=== PATIENT | male | born 1980 ===

== ENCOUNTER 2024-12-16 16:35 | Inpatient (IN) | payer MEDICARE, MEDICAID, SELFPAY ==
--- NOTE | 2024-12-16 17:54 | PC.ADMIT ---
Blue is a 44-year-old male admitted from [facility] to 12/16/24 on a CV for treatment of bipolar d/o and SI with plan to jump into traffic. Tox screen positive for THC. Medical hx of HTN and diabetes. Per crisis eval, pt presented to ED because ?I was feeing suicidal and I just snapped. I?m from [place] but I want to move here. My care team in [place] sucks, they?re all pussies.? Pt endorsed auditory hallucinations of ?random voices? and ?sometimes? experiences HI, not towards anyone specifically. While pt was in [facility] ED, RN reported that pt became increasingly paranoid and agitated but willingly accepted IM Zyprexa 5mg at 0930 and IM Versed 5mg at 1000 with good effect. Upon arrival to , pt was easily agitated but compliant with skin check which was unremarkable. Pt reported a 10lb weight loss in ?the past few weeks.? Pt declined to participate in remainder of admission assessment. Pt received PRN Zyprexa 5mg PO at 1709. Pt presents as anxious and paranoid, asking ?is it safe here? I need to be here for a long time.? Pt also asked ?can you tell me what Ambien is? I want to be on it. I have all kinds of sleep disorders.? Message was relayed to provider but RN told pt that Ambien is not typically prescribed unless patients have been prescribed it previously. Pt was frequently asking for his meal tray right after his order was called down but he declined snacks when they were offered. Pt approached RN station shortly after receiving PO Zyprexa saying ?I need something stronger. I need a happy pill. I haven?t been happy in 20 years. I need Ambien. I feel agitated and anxious and like I want to . I need to work but I don?t have a job.? Eye contact was avoidant and pt frequently looked away or walked away from RN during conversation. Pt frequently approached RN station asking for Ambien and stated ?I need to get out of here. I just want to fucking , I?ll step in front of a truck or stick a pen in my throat. I want to kill myself or someone else.? Pt responded well to redirection. Provider ordered PRN Ambien for pt to take prior to bedtime. Pt placed on 15 minute safety checks.
--- NOTE | 2024-12-16 17:55 | PC.NURSE ---
pt declined flu vaccine at this time
[2024-12-16] MEDS: OLANZapine ODT 10 MG TAB.RAPDIS TRANSLINGU ×2 (17:59→20:21)
--- NOTE | 2024-12-16 18:03 | PC.NURSE ---
Per provider, ok to give pt PRN Ambien 5mg at 1759.
[2024-12-16 18:59] VITALS: BMI 25.0
[2024-12-16 20:21] LABS: Creatinine Clr Calc Pharmacy 129.5; Estimated Glomerular Filt Rate > 60
[2024-12-16 20:30] VITALS: BP 119/75; PULSE 83; RESP 16; TEMP 36.4; O2SAT 97
[2024-12-17 08:00] VITALS: BP 124/83; PULSE 79; RESP 18; TEMP 36.6; O2SAT 95
--- NOTE | 2024-12-17 08:37 | HO.PM.IMCN ---
History of Present Illness Data of Consult Service Date: 12/17/24 Primary Care Provider: Unknown Physician HPI 44 year old man with a history of diabetes mellitus, hyperlipidemia admitted by psychiatric team. Vital signs are stable, creatinine within normal limits. Patient has no acute medical complaints at this time Review of Systems Review of Systems: Denies any recent fever chills or decrease in appetite respiratory denies any shortness of breath or cough cardiovascular denied chest pain gastrointestinal denies any dysphagia abdominal pain nausea vomiting or diarrhea genitourinary denies any dysuria frequency or hematuria musculoskeletal denies any joint pain or swelling neuropsych denies any weakness or seizures all other systems reviewed are negative [facility] Medical History (Updated 12/17/24 @ 10:38 by Amanda Ballesteros NP) Depression Hyperlipidemia Diabetes mellitus type 2 in nonobese Social History Household Members: Other Household Members Other:: pt declined to respond Housing: Other Housing Other:: pt declined to respond Do you presently have visiting nurse or other home services: No Patient Tobacco Use Status: Current everyday Tobacco user Tobacco use type: Cigarette Cigarette Packs Per Day: 1 Cigarettes Per Day: 20.0 Smoked in Last 30 Days: Yes Frequency of e-Cigarette/Vaping Use: daily Patient Interested in Nicotine Replacement: Yes Patient Given Instructions on How to Stop Smoking: Yes Date Education Initiated: 12/16/24 Second Hand Smoke Exposure: No Currently Displaying Signs/Symptoms of Drug Intoxication Withdrawal: No Advance Directives: No Advance Directives Information Provided: No Do you have thoughts of harming others: None Do you have a plan to hurt others: No Plan Recently lost weight without trying: Yes How much weight loss: 2-13 pounds Eating poorly because of decreased appetite: Yes Nutrition screen score: 4 Nutrition Risks: No Nutritional Risk Poor oral hygiene: Yes (poor dentition) Meds Allergies Allergy/AdvReac Type Severity Reaction Status Date / Time No Known Allergies Allergy Verified 12/16/24 16:40 Active Medications: Current Medications Acetaminophen (Acetaminophen 325 Mg Tablet) 650 mg PO Q6H PRN PRN Reason: Headache/Pain, Scale 1-10 Al Hydroxide/Mg Hydroxide (Magnesium Hydrox/Alum Hydrox 30 Ml Oral.Susp) 30 ml PO Q6H PRN PRN Reason: Heartburn/Nausea Hydroxyzine HCl (Hydroxyzine Hcl 25 Mg Tablet) 25 mg PO Q6H PRN PRN Reason: mild anxiety Magnesium Hydroxide (Milk Of Magnesia 30 Ml Oral.Susp) 30 ml PO DAILY PRN PRN Reason: Constipation Metformin HCl (Metformin Hcl 500 Mg Tablet) 750 mg PO BEDTIME EFRAÍN Last Admin: 12/16/24 20:20 Dose: 750 mg Nicotine (Nicotine 21 Mg Patch.Td24) 21 mg TRANSDERMA DAILY EFRAÍN Nicotine Polacrilex (Nicotine Polacrilex 2 Mg Gum) 4 mg BUCCAL Q1H PRN PRN Reason: Nicotine Cravings Last Admin: 12/16/24 21:49 Dose: 4 mg Olanzapine (Olanzapine Odt 10 Mg Tab.Rapdis) 10 mg TRANSLINGU TID PRN PRN Reason: agitation Last Admin: 12/16/24 17:59 Dose: 10 mg Olanzapine (Olanzapine Odt 10 Mg Tab.Rapdis) 10 mg TRANSLINGU BEDTIME EFRAÍN Last Admin: 12/16/24 20:21 Dose: 10 mg Trazodone HCl (Trazodone Hcl 50 Mg Tablet) 50 mg PO BEDTIME MRX1 PRN PRN Reason: Insomnia Last Admin: 12/16/24 21:02 Dose: 50 mg Zolpidem Tartrate (Zolpidem Tartrate 5 Mg Tablet) 5 mg PO BEDTIME EFRAÍN Last Admin: 12/16/24 20:21 Dose: 5 mg Zolpidem Tartrate (Zolpidem Tartrate 5 Mg Tablet) 5 mg PO BEDTIME PRN PRN Reason: Insomnia Last Admin: 12/16/24 17:59 Dose: 5 mg Home Medications ?Medication ?Instructions ?Recorded ?Confirmed ?Last Taken ?Type atorvastatin 20 mg tablet 20 mg PO DAILY 12/16/24 12/16/24 Unknown History metformin 750 mg tablet,extended 750 mg PO DAILY 12/16/24 12/16/24 Unknown History release 24 hr olanzapine 10 mg disintegrating 10 mg PO DAILY 12/16/24 12/16/24 Unknown History tablet olanzapine 10 mg disintegrating 25 mg PO BEDTIME 12/16/24 12/16/24 Unknown History tablet tiotropium bromide 2.5 2 inh inhalation DAILY 12/16/24 12/16/24 Unknown History mcg/actuation mist for inhalation trazodone 100 mg tablet 100 mg PO BEDTIME 12/16/24 12/16/24 Unknown History Physical Exam Vital Signs and Narrative: Vital Signs: Last Vital Signs Temp 97.6 F 12/16/24 20:30 Pulse 83 12/16/24 20:30 Resp 16 12/16/24 20:30 BP 119/75 12/16/24 20:30 Pulse Ox 97 12/16/24 20:30 O2 Del Method Room Air 12/16/24 20:30 BMI result Body Mass Index 25.0 Appearing in no acute distress head is normocephalic atraumatic eyes pupils are PERRLA sclera is anicteric mouth throat mucous membranes are intact and moist neck is supple no lymphadenopathy, no JVD noted lung sounds are clear to auscultation heart regular rate rhythm, clear S1, S2 positive bowel sounds, abdomen is soft, nontender neuro patient is alert x3, no focal deficits Cranial nerves 2-12 are grossly intact with focal deficits Results Labs 12/16/24 19:59 Labs: Laboratory Results - last 24 hr 12/16/24 19:59 Estim Creat Clear Calc 129.5 Estimated GFR > 60 Assessment and Plan (1) Major depression, recurrent: Status: Acute Plan 46 year old man admitted by psychiatric team for depression Mental health management as per psychiatric team Erectile dysfunction Patient requested medication upon discharge, this can be discussed with the psychiatric provider and the patient or the patient, referred to an outpatient provider Tobacco use Discussed the importance of smoking cessation NRT
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
[2024-12-17] MEDS: Nicotine 21 MG PATCH.TD24 TRANSDERMA (08:57)
[2024-12-17] MEDS: OLANZapine ODT 10 MG TAB.RAPDIS TRANSLINGU ×2 (09:49→20:04)
[2024-12-17 19:22] VITALS: BP 145/93; PULSE 98; RESP 16; TEMP 36.6; O2SAT 97
[2024-12-18 08:00] VITALS: BP 117/71; PULSE 84; RESP 18; TEMP 36.3; O2SAT 93
--- NOTE | 2024-12-18 09:57 | HO.PSYCHPN ---
Subjective Subjective Date of Service: 12/18/24 Reason For Visit: SI Subjective Notes: Conditional Voluntary Interim History: Patient was seen and discussed in rounds today. Records and plans were reviewed. He continued to be quite anxious, complaining of intrusive thoughts, having some wishes and at times mentioning about having wanted to jump in front of a truck etc.. Initially the Zyprexa p.r.n. proved to be ineffective so I changed him to chlorpromazine 50 mg q.4 p.r.n. and that also seemed to be not enough so last night we increased it to 100 mg with which he did finally sleep. He also has been making some sexualized remarks which I talked to him about. He denies any side effects on the higher dose of chlorpromazine. He does contract for safety on the unit. Review of Systems Review of Systems Yes all other systems are reviewed and are negative Mental Status Exam Mental Status Exam Narrative: In today's visit he is alert, oriented and pleasant. He appears to be calmer. No acute signs of psychosis but continues to exhibit paranoid feelings and denies any AVH. Continues to endorse some suicidal ideations and wishes. Contracts for safety on the unit. Cognitively he is intact on observation. No HI. Judgment is marginal. Diagnostics Vital Signs (24Hr): Vital Signs - 24 hr 12/17/24 19:22 12/18/24 08:00 Temperature 97.8 F 97.3 F Pulse Rate 98 84 Respiratory Rate 16 18 Blood Pressure 145/93 H 117/71 Pulse Oximetry 97 93 Oxygen Delivery Method Room Air Room Air BMI result Body Mass Index 25.0 Labs 12/16/24 19:59 Labs: Laboratory Results - last 48 hr 12/16/24 19:59 Creatinine 0.72 Estim Creat Clear Calc 129.5 Estimated GFR > 60 Medications Medications Current Medications Acetaminophen (Acetaminophen 325 Mg Tablet) 650 mg PO Q6H PRN PRN Reason: Headache/Pain, Scale 1-10 Last Admin: 12/17/24 20:47 Dose: 650 mg Al Hydroxide/Mg Hydroxide (Magnesium Hydrox/Alum Hydrox 30 Ml Oral.Susp) 30 ml PO Q6H PRN PRN Reason: Heartburn/Nausea Atorvastatin Calcium (Atorvastatin Calcium 20 Mg Tablet) 20 mg PO DAILY [facility] Last Admin: 12/17/24 09:23 Dose: 20 mg Chlorpromazine HCl (Chlorpromazine Hcl 100 Mg Tablet) 100 mg PO Q4H PRN PRN Reason: anxiet, agitation Fluoxetine HCl (Fluoxetine Hcl 10 Mg Capsule) 10 mg PO DAILY [facility] Last Admin: 12/17/24 09:24 Dose: 10 mg Hydroxyzine HCl (Hydroxyzine Hcl 25 Mg Tablet) 25 mg PO Q6H PRN PRN Reason: mild anxiety Last Admin: 12/17/24 16:20 Dose: 25 mg Magnesium Hydroxide (Milk Of Magnesia 30 Ml Oral.Susp) 30 ml PO DAILY PRN PRN Reason: Constipation Metformin HCl (Metformin Hcl 500 Mg Tablet) 750 mg PO BEDTIME EFRAÍN Last Admin: 12/17/24 20:04 Dose: 750 mg Nicotine (Nicotine 21 Mg Patch.Td24) 21 mg TRANSDERMA DAILY EFRAÍN Last Admin: 12/17/24 08:57 Dose: 21 mg Nicotine Polacrilex (Nicotine Polacrilex 2 Mg Gum) 4 mg BUCCAL Q1H PRN PRN Reason: Nicotine Cravings Last Admin: 12/17/24 22:11 Dose: 4 mg Olanzapine (Olanzapine Odt 10 Mg Tab.Rapdis) 10 mg TRANSLINGU BEDTIME EFRAÍN Last Admin: 12/17/24 20:04 Dose: 10 mg Trazodone HCl (Trazodone Hcl 50 Mg Tablet) 50 mg PO BEDTIME MRX1 PRN PRN Reason: Insomnia Last Admin: 12/17/24 21:35 Dose: 50 mg Zolpidem Tartrate (Zolpidem Tartrate 5 Mg Tablet) 5 mg PO BEDTIME EFRAÍN Last Admin: 12/17/24 20:04 Dose: 5 mg Allergies Allergies Allergy/AdvReac Type Severity Reaction Status Date / Time No Known Allergies Allergy Verified 12/16/24 16:40 Assessment & Plan Assessment & Plan (1) Major depression, recurrent: Status: Acute Code(s): F33.9 - Major depressive disorder, recurrent, unspecified Plan 46 year old man admitted by psychiatric team for depression Mental health management as per psychiatric team Erectile dysfunction Patient requested medication upon discharge, this can be discussed with the psychiatric provider and the patient or the patient, referred to an outpatient provider Tobacco use Discussed the importance of smoking cessation NRT 12/18: Continue current regimen and plans Patient educated on: medication risk/benefits Reason for continued inpatient stay Substantial Risk for: med/psych decompensation Time Spent With Patient Time: Total time managing care of this patient today ____ minutes.
[2024-12-18] MEDS: Nicotine 21 MG PATCH.TD24 TRANSDERMA (10:26)
[2024-12-18] MEDS: Mag&Al/Sim/Diphenhyd/Lidocaine 10 ML ORAL.SUSP PO ×2 (15:17→19:07)
[2024-12-18 20:00] VITALS: BP 115/60; PULSE 97; RESP 18; TEMP 36.2; O2SAT 95
[2024-12-18] MEDS: OLANZapine ODT 10 MG TAB.RAPDIS TRANSLINGU (20:05)
[2024-12-19 07:45] VITALS: BP 118/81; PULSE 69; RESP 20; TEMP 36.2; O2SAT 96
--- NOTE | 2024-12-19 08:42 | HO.PSYCHPN ---
Subjective Subjective Date of Service: 12/19/24 Reason For Visit: SI Subjective Notes: Conditional Voluntary and 3 Day Interim History: Patient was seen and discussed in rounds today. Records and plans were reviewed. He actually has been doing better with the increased dose of chlorpromazine. He did have some mood instability yesterday, wanting to leave but was easily redirected. He denies any side effects. Eating and sleeping well. No SI. He did put in a 3 day notice. He does want to return to [place] at this time. Review of Systems Review of Systems Yes all other systems are reviewed and are negative Mental Status Exam Mental Status Exam Narrative: In today's visit he is alert, oriented and pleasant. He appears to be calmer. No acute signs of psychosis but continues to exhibit paranoid feelings and denies any AVH. Continues to endorse some suicidal ideations and wishes. Contracts for safety on the unit. Cognitively he is intact on observation. No HI. Judgment is marginal. Diagnostics Vital Signs (24Hr): Vital Signs - 24 hr 12/18/24 20:00 12/19/24 07:45 Temperature 97.1 F 97.2 F Pulse Rate 97 69 Respiratory Rate 18 20 Blood Pressure 115/60 118/81 Pulse Oximetry 95 96 Oxygen Delivery Method Room Air Room Air BMI result Body Mass Index 25.0 Labs 12/16/24 19:59 Medications Medications Current Medications Acetaminophen (Acetaminophen 325 Mg Tablet) 650 mg PO Q6H PRN PRN Reason: Headache/Pain, Scale 1-10 Last Admin: 12/18/24 14:34 Dose: 650 mg Al Hydroxide/Mg Hydroxide (Magnesium Hydrox/Alum Hydrox 30 Ml Oral.Susp) 30 ml PO Q6H PRN PRN Reason: Heartburn/Nausea Atorvastatin Calcium (Atorvastatin Calcium 20 Mg Tablet) 20 mg PO DAILY EFRAÍN Last Admin: 12/18/24 10:25 Dose: 20 mg Chlorpromazine HCl (Chlorpromazine Hcl 100 Mg Tablet) 100 mg PO Q4H PRN PRN Reason: anxiet, [id number] agitation Last Admin: 12/18/24 16:13 Dose: 100 mg Diazepam (Diazepam 5 Mg Tablet) 10 mg PO Q4H PRN PRN Reason: agitation;given w/ haldol Diphenhydramine HCl (Diphenhydramine Hcl 25 Mg Capsule) 50 mg PO Q4H PRN PRN Reason: agitation Fluoxetine HCl (Fluoxetine Hcl 10 Mg Capsule) 10 mg PO DAILY EFRAÍN On Hold: 12/18/24 17:42 Last Admin: 12/18/24 10:25 Dose: 10 mg Haloperidol (Haloperidol 5 Mg Tablet) 5 mg PO Q4H PRN PRN Reason: agitation Hydroxyzine HCl (Hydroxyzine Hcl 25 Mg Tablet) 25 mg PO Q6H PRN PRN Reason: mild anxiety Last Admin: 12/18/24 16:13 Dose: 25 mg Lidocaine/Diphenhydr/Alum/Mg/Simeth (Mag&Al/Sim/Diphenhyd/Lidocaine 10 Ml Oral.Susp) 10 ml PO Q4H PRN; Protocol PRN Reason: mouth pain Last Admin: 12/18/24 19:07 Dose: 10 ml Magnesium Hydroxide (Milk Of Magnesia 30 Ml Oral.Susp) 30 ml PO DAILY PRN PRN Reason: Constipation Metformin HCl (Metformin Hcl 500 Mg Tablet) 750 mg PO BEDTIME EFRAÍN Last Admin: 12/18/24 20:05 Dose: 750 mg Nicotine (Nicotine 21 Mg Patch.Td24) 21 mg TRANSDERMA DAILY EFRAÍN Last Admin: 12/18/24 10:26 Dose: 21 mg Nicotine Polacrilex (Nicotine Polacrilex 2 Mg Gum) 4 mg BUCCAL Q1H PRN PRN Reason: Nicotine Cravings Last Admin: 12/19/24 08:33 Dose: 4 mg Olanzapine (Olanzapine Odt 10 Mg Tab.Rapdis) 10 mg TRANSLINGU BEDTIME EFRAÍN Last Admin: 12/18/24 20:05 Dose: 10 mg Trazodone HCl (Trazodone Hcl 50 Mg Tablet) 50 mg PO BEDTIME MRX1 PRN PRN Reason: Insomnia Last Admin: 12/18/24 20:41 Dose: 50 mg Zolpidem Tartrate (Zolpidem Tartrate 5 Mg Tablet) 5 mg PO BEDTIME EFRAÍN Last Admin: 12/18/24 20:05 Dose: 5 mg Allergies Allergies Allergy/AdvReac Type Severity Reaction Status Date / Time No Known Allergies Allergy Verified 12/16/24 16:40 Assessment & Plan Assessment & Plan (1) Major depression, recurrent: Status: Acute Code(s): F33.9 - Major depressive disorder, recurrent, unspecified Plan 46 year old man admitted by psychiatric team for depression Mental health management as per psychiatric team Erectile dysfunction Patient requested medication upon discharge, this can be discussed with the psychiatric provider and the patient or the patient, referred to an outpatient provider Tobacco use Discussed the importance of smoking cessation NRT 12/18: Continue current regimen and plans 12/19: Continue current regimen and plans. Reason for continued inpatient stay Substantial Risk for: med/psych decompensation Time Spent With Patient Time: Total time managing care of this patient today ____ minutes.
[2024-12-19] MEDS: Nicotine 21 MG PATCH.TD24 TRANSDERMA (09:05)
[2024-12-19] MEDS: Mag&Al/Sim/Diphenhyd/Lidocaine 10 ML ORAL.SUSP PO (09:10)
[2024-12-19 20:00] VITALS: BP 146/71; PULSE 98; RESP 16; TEMP 36.3; O2SAT 95
[2024-12-19] MEDS: OLANZapine ODT 10 MG TAB.RAPDIS TRANSLINGU (20:57)
[2024-12-20 07:58] VITALS: BP 110/79; PULSE 90; RESP 16; TEMP 36.3; O2SAT 96
[2024-12-20] MEDS: Nicotine 21 MG PATCH.TD24 TRANSDERMA (08:00)
--- NOTE | 2024-12-20 14:08 | HO.PSYCHPN ---
Subjective Subjective Date of Service: 12/20/24 Reason For Visit: SI Subjective Notes: 3 Day Interim History: Active on unit. visited with friend today. Patient reports feeling better than when I first got here ; pt stated, I'm not feeling suicidal. I get agitated and anxious pretty quick. I gotta work on that . 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 denies SI/HI/VH/AH. 3 day notice up on 12/22/24. Medication Compliance: Yes Side effects from medications: No Attending Groups: No Mental Status Exam Mental Status Exam Narrative: Pt is alert and oriented; behavior is cooperative and calm; dressed in casual attire; mood is described as good ; eye contact appropriate; Speech is normal rate, volume and not pressured; thought process is organized; Thought content is on tx/discharge; denies SI/HI/VH/AH. Diagnostics Vital Signs (24Hr): Vital Signs - 24 hr 12/19/24 20:00 12/20/24 07:58 Temperature 97.3 F 97.4 F Pulse Rate 98 90 Respiratory Rate 16 16 Blood Pressure 146/71 H 110/79 Pulse Oximetry 95 96 Oxygen Delivery Method Room Air Room Air BMI result Body Mass Index 25.0 Labs 12/16/24 19:59 Medications Medications Current Medications Acetaminophen (Acetaminophen 325 Mg Tablet) 650 mg PO Q6H PRN PRN Reason: Headache/Pain, Scale 1-10 Last Admin: 12/19/24 15:22 Dose: 650 mg Al Hydroxide/Mg Hydroxide (Magnesium Hydrox/Alum Hydrox 30 Ml Oral.Susp) 30 ml PO Q6H PRN PRN Reason: Heartburn/Nausea Atorvastatin Calcium (Atorvastatin Calcium 20 Mg Tablet) 20 mg PO DAILY EFRAÍN Last Admin: 12/20/24 08:00 Dose: 20 mg Chlorpromazine HCl (Chlorpromazine Hcl 100 Mg Tablet) 100 mg PO Q4H PRN PRN Reason: anxiet, [id number] agitation Last Admin: 12/20/24 11:40 Dose: 100 mg Diazepam (Diazepam 5 Mg Tablet) 10 mg PO Q4H PRN PRN Reason: agitation;given w/ haldol Last Admin: 12/20/24 12:40 Dose: 10 mg Diphenhydramine HCl (Diphenhydramine Hcl 25 Mg Capsule) 50 mg PO Q4H PRN PRN Reason: agitation Last Admin: 12/20/24 12:40 Dose: 50 mg Fluoxetine HCl (Fluoxetine Hcl 10 Mg Capsule) 10 mg PO DAILY EFRAÍN On Hold: 12/18/24 17:42 Last Admin: 12/18/24 10:25 Dose: 10 mg Haloperidol (Haloperidol 5 Mg Tablet) 5 mg PO Q4H PRN PRN Reason: agitation Last Admin: 12/20/24 12:40 Dose: 5 mg Hydroxyzine HCl (Hydroxyzine Hcl 25 Mg Tablet) 25 mg PO Q6H PRN PRN Reason: mild anxiety Last Admin: 12/18/24 16:13 Dose: 25 mg Lidocaine/Diphenhydr/Alum/Mg/Simeth (Mag&Al/Sim/Diphenhyd/Lidocaine 10 Ml Oral.Susp) 10 ml PO Q4H PRN; Protocol PRN Reason: mouth pain Last Admin: 12/19/24 09:10 Dose: 10 ml Magnesium Hydroxide (Milk Of Magnesia 30 Ml Oral.Susp) 30 ml PO DAILY PRN PRN Reason: Constipation Metformin HCl (Metformin Hcl 500 Mg Tablet) 750 mg PO BEDTIME EFRAÍN Last Admin: 12/19/24 20:57 Dose: 750 mg Nicotine (Nicotine 21 Mg Patch.Td24) 21 mg TRANSDERMA DAILY EFRAÍN Last Admin: 12/20/24 08:00 Dose: 21 mg Nicotine Polacrilex (Nicotine Polacrilex 2 Mg Gum) 4 mg BUCCAL Q1H PRN PRN Reason: Nicotine Cravings Last Admin: 12/20/24 12:40 Dose: 4 mg Olanzapine (Olanzapine Odt 10 Mg Tab.Rapdis) 10 mg TRANSLINGU BEDTIME EFRAÍN Last Admin: 12/19/24 20:57 Dose: 10 mg Trazodone HCl (Trazodone Hcl 50 Mg Tablet) 50 mg PO BEDTIME MRX1 PRN PRN Reason: Insomnia Last Admin: 12/19/24 22:54 Dose: 50 mg Zolpidem Tartrate (Zolpidem Tartrate 5 Mg Tablet) 5 mg PO BEDTIME EFRAÍN Last Admin: 12/19/24 20:58 Dose: 5 mg Allergies Allergies Allergy/AdvReac Type Severity Reaction Status Date / Time No Known Allergies Allergy Verified 12/16/24 16:40 Assessment & Plan Assessment & Plan (1) Major depression, recurrent: Status: Acute Code(s): F33.9 - Major depressive disorder, recurrent, unspecified Plan Blue was admitted on a CV for safety, evaluation and treatment. Current medications were reviewed and continued. Prozac 10 mg was added. Side effects were reviewed. He will engage in all treatment modalities on the unit. Outpatient referral to be made prior to discharge. 12/18: Continue current regimen and plans 12/19: Continue current regimen and plans. 12/20: Active on unit. visited with friend today. Patient reports feeling better than when I first got here ; pt stated, I'm not feeling suicidal. I get agitated and anxious pretty quick. I gotta work on that . 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 denies SI/HI/VH/AH. 3 day notice up on 12/22/24. Patient educated on: diagnosis and medication risk/benefits Reason for continued inpatient stay Substantial Risk for: med/psych decompensation Time Spent With Patient Time: Total time managing care of this patient today _20___ minutes.
[2024-12-20] MEDS: Mag&Al/Sim/Diphenhyd/Lidocaine 10 ML ORAL.SUSP PO (16:26)
[2024-12-20] MEDS: Nicotine Polacrilex Lozenge 2 MG LOZENGE BUCCAL (17:26)
[2024-12-20] MEDS: OLANZapine ODT 10 MG TAB.RAPDIS TRANSLINGU (22:25)
[2024-12-20] MEDS: Nicotine Polacrilex Lozenge 4 MG LOZENGE BUCCAL (22:26)
[2024-12-20 22:32] VITALS: BP 121/77; PULSE 89; RESP 16; TEMP 36.5; O2SAT 98
[2024-12-21] MEDS: Nicotine Polacrilex Lozenge 4 MG LOZENGE BUCCAL ×5 (07:24→19:47)
[2024-12-21 07:46] VITALS: BP 126/91; PULSE 85; RESP 20; TEMP 36.3; O2SAT 96
[2024-12-21] MEDS: Nicotine 21 MG PATCH.TD24 TRANSDERMA (08:30)
--- NOTE | 2024-12-21 08:38 | HO.PSYCHPN ---
Subjective Subjective Date of Service: 12/21/24 Reason For Visit: SI Subjective Notes: 3 Day Interim History: Patient continues to report feeling good ; focused on discharge and returning home. Irritable at times. denies SI/HI/VH/AH. 3 day notice up on 12/22/24. Medication Compliance: Yes Side effects from medications: No Attending Groups: No Mental Status Exam Mental Status Exam Narrative: Pt is alert and oriented; behavior is cooperative and calm; dressed in casual attire; mood is described as good ; eye contact appropriate; Speech is normal rate, volume and not pressured; thought process is organized; Thought content is on discharge; denies SI/HI/VH/AH. Diagnostics Vital Signs (24Hr): Vital Signs - 24 hr 12/20/24 22:32 12/21/24 07:46 Temperature 97.7 F 97.3 F Pulse Rate 89 85 Respiratory Rate 16 20 Blood Pressure 121/77 126/91 H Pulse Oximetry 98 96 Oxygen Delivery Method Room Air Room Air BMI result Body Mass Index 25.0 Labs 12/16/24 19:59 Medications Medications Current Medications Acetaminophen (Acetaminophen 325 Mg Tablet) 650 mg PO Q6H PRN PRN Reason: Headache/Pain, Scale 1-10 Last Admin: 12/20/24 16:27 Dose: 650 mg Al Hydroxide/Mg Hydroxide (Magnesium Hydrox/Alum Hydrox 30 Ml Oral.Susp) 30 ml PO Q6H PRN PRN Reason: Heartburn/Nausea Atorvastatin Calcium (Atorvastatin Calcium 20 Mg Tablet) 20 mg PO DAILY EFRAÍN Last Admin: 12/21/24 08:29 Dose: 20 mg Chlorpromazine HCl (Chlorpromazine Hcl 100 Mg Tablet) 100 mg PO Q4H PRN PRN Reason: anxiet, [id number] agitation Last Admin: 12/20/24 11:40 Dose: 100 mg Diazepam (Diazepam 5 Mg Tablet) 10 mg PO Q4H PRN PRN Reason: agitation;given w/ haldol Last Admin: 12/20/24 12:40 Dose: 10 mg Diphenhydramine HCl (Diphenhydramine Hcl 25 Mg Capsule) 50 mg PO Q4H PRN PRN Reason: agitation Last Admin: 12/20/24 12:40 Dose: 50 mg Fluoxetine HCl (Fluoxetine Hcl 10 Mg Capsule) 10 mg PO DAILY EFRAÍN On Hold: 12/18/24 17:42 Last Admin: 12/18/24 10:25 Dose: 10 mg Haloperidol (Haloperidol 5 Mg Tablet) 5 mg PO Q4H PRN PRN Reason: agitation Last Admin: 12/20/24 12:40 Dose: 5 mg Hydroxyzine HCl (Hydroxyzine Hcl 25 Mg Tablet) 25 mg PO Q6H PRN PRN Reason: mild anxiety Last Admin: 12/18/24 16:13 Dose: 25 mg Lidocaine/Diphenhydr/Alum/Mg/Simeth (Mag&Al/Sim/Diphenhyd/Lidocaine 10 Ml Oral.Susp) 10 ml PO Q4H PRN; Protocol PRN Reason: mouth pain Last Admin: 12/20/24 16:26 Dose: 10 ml Magnesium Hydroxide (Milk Of Magnesia 30 Ml Oral.Susp) 30 ml PO DAILY PRN PRN Reason: Constipation Metformin HCl (Metformin Hcl 500 Mg Tablet) 750 mg PO BEDTIME EFRAÍN Last Admin: 12/20/24 22:25 Dose: 750 mg Nicotine (Nicotine 21 Mg Patch.Td24) 21 mg TRANSDERMA DAILY REPLACED BY [facility] Last Admin: 12/21/24 08:30 Dose: 21 mg Nicotine Polacrilex (Nicotine Polacrilex Lozenge 4 Mg Lozenge) 4 mg BUCCAL Q1H PRN PRN Reason: Nicotine Cravings Last Admin: 12/21/24 07:24 Dose: 4 mg Olanzapine (Olanzapine Odt 10 Mg Tab.Rapdis) 10 mg TRANSLINGU BEDTIME EFRAÍN Last Admin: 12/20/24 22:25 Dose: 10 mg Trazodone HCl (Trazodone Hcl 50 Mg Tablet) 50 mg PO BEDTIME MRX1 PRN PRN Reason: Insomnia Last Admin: 12/20/24 22:26 Dose: 50 mg Zolpidem Tartrate (Zolpidem Tartrate 5 Mg Tablet) 5 mg PO BEDTIME EFRAÍN Last Admin: 12/20/24 22:26 Dose: 5 mg Allergies Allergies Allergy/AdvReac Type Severity Reaction Status Date / Time No Known Allergies Allergy Verified 12/16/24 16:40 Assessment & Plan Assessment & Plan (1) Major depression, recurrent: Status: Acute Code(s): F33.9 - Major depressive disorder, recurrent, unspecified Plan Edward was admitted on a CV for safety, evaluation and treatment. Current medications were reviewed and continued. Prozac 10 mg was added. Side effects were reviewed. He will engage in all treatment modalities on the unit. Outpatient referral to be made prior to discharge. 12/18: Continue current regimen and plans 12/19: Continue current regimen and plans. 12/20: Active on unit. visited with friend today. Patient reports feeling better than when I first got here ; pt stated, I'm not feeling suicidal. I get agitated and anxious pretty quick. I gotta work on that . 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 denies SI/HI/VH/AH. 3 day notice up on 12/22/24. 12/21: Patient continues to report feeling good ; focused on discharge and returning home. Irritable at times. denies SI/HI/VH/AH. 3 day notice up on 12/22/24. Patient educated on: diagnosis and medication risk/benefits Reason for continued inpatient stay Substantial Risk for: stable for discharge Time Spent With Patient Time: Total time managing care of this patient today _20___ minutes.
[2024-12-21] MEDS: OLANZapine ODT 10 MG TAB.RAPDIS TRANSLINGU (19:46)
[2024-12-21 20:45] VITALS: BP 124/78; PULSE 90; RESP 16; TEMP 36.6; O2SAT 100
[2024-12-22 07:42] VITALS: BP 93/59; PULSE 82; RESP 14; TEMP 36.3; O2SAT 91
--- NOTE | 2024-12-22 09:23 | PM.PSYDC ---
DS: Providers Provider Date of Service: 12/22/24 Date of admission: 12/16/24 16:35 Date of discharge: 12/22/24 Primary care physician: Unknown Physician Attending physician on admission: Sonia Oseguera Consults: 12/16/24 16:40 Consult to Hospitalist Routine Comment: Consulting Provider: [facility] Hospitalists Reason For Exam: new admit, H&P Attending physician on discharge: Brandon Cee Discharging clinician: Flor Servin DS: Diagnosis Discharge Diagnosis (1) Major depression, recurrent: Status: Acute DS: Medications Discharge Medications Home Medications: Home Medications ?Medication ?Instructions ?Recorded ?Confirmed atorvastatin 20 mg tablet 20 mg PO DAILY 12/16/24 12/16/24 metformin 750 mg tablet,extended 750 mg PO DAILY 12/16/24 12/16/24 release 24 hr olanzapine 10 mg disintegrating 25 mg PO BEDTIME 12/16/24 12/16/24 tablet tiotropium bromide 2.5 2 inh inhalation DAILY 12/16/24 12/16/24 mcg/actuation mist for inhalation trazodone 100 mg tablet 100 mg PO BEDTIME 12/16/24 12/16/24 Previous Rx's ?Medication ?Instructions ?Recorded chlorpromazine 100 mg tablet 100 mg PO BID PRN anxiet, [id number] 12/21/24 agitation 7 days #14 tabs fluoxetine 10 mg capsule 10 mg PO DAILY #0 caps 12/21/24 olanzapine 10 mg disintegrating 10 mg translingual BEDTIME 30 days 12/21/24 tablet #30 tabs Mental Status Exam Mental Status Exam Narrative: Pt is alert and oriented; behavior is cooperative and calm; dressed in casual attire; mood is described as good ; eye contact appropriate; Speech is normal rate, volume and not pressured; thought process is organized; Thought content is on discharge; denies SI/HI/VH/AH. Data Data Completed and Pending Completed studies during hospitalization [Text1]: 12/16/24 19:59 Creatinine 0.72 Estim Creat Clear Calc 129.5 Estimated GFR > 60 DS: Summary Hospital Course Hospital Course: Blue is a 44-year-old white, single, unemployed, father of a 15-year-old. This is 1 of many psychiatric hospitalizations. Last hospitalization was about 2 months ago at [facility]. He has had 1 admission in this hospital. He had been living with his mother and uncle in [facility] but decided to leave because it is a ?toxic? environment for him but could not specify as to why. He is not currently engaged with any outpatient services. He is on Zyprexa 10 mg nightly and in the past has been on SSRIs and states that Prozac may have been somewhat helpful to him. He does not use any drugs or alcohol on a regular basis. He has had suicidal ideations and plans to jump in front of a truck. Two years ago he had an overdose of medications and alcohol and was hospitalized. He denies any current active ideations. No homicidal ideations. No access to firearms. Blue was admitted on a for safety, evaluation and treatment. Current medications were reviewed and continued. Prozac 10 mg was added. Side effects were reviewed. He will engage in all treatment modalities on the unit. Outpatient referral to be made prior to discharge. Active on unit. visited with friend today. Patient reports feeling better than when I first got here ; pt stated, I'm not feeling suicidal. I get agitated and anxious pretty quick. I gotta work on that . 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 denies SI/HI/VH/AH. 3 day notice up on 12/22/24. Patient continues to report feeling good ; focused on discharge and returning home. Irritable at times. denies SI/HI/VH/AH. 3 day notice up on 12/22/24. Patient reports he plans on following up with his outpatient providers. Status at Discharge Cognitive/behavioral status at discharge: Patient has insight and demonstrates good judgment in terms of wanting to pursue treatment. Patient has a safety plan that includes presenting to the closest ER or calling 911 if feeling unsafe. Functional status at discharge: independent ambulation Overall status at discharge: patient is back to baseline Time Spent with Patient Time attestation: Total time managing care of this patient today _20___ minutes. Time spent: Less than 30 minutes Discharge Plan Discharge Anticipated Discharge Date/Time: 12/22/24 10:00 Patient Disposition: Home, Self-Care Discharge Diagnosis: MDD Referrals: Therapy & Psychiatry [Other] - 1 Week Referral Note: *Please follow up with your outpatient providers regarding aftercare follow up appointments. [facility] [Provider Group] - 1 Week Referral Note: 12-21-24 [facility] was added to patients chart.. Please call [phone] to schedule your follow up appt within 7-10 days of discharge. No release or pcp on file. Discharge Medications: New olanzapine 10 mg Tablet,Disintegrating 10 mg translingual BEDTIME 30 Days Qty: 30 0RF chlorpromazine 100 mg Tablet 100 mg PO BID PRN (Reason: anxiet, [id number] agitation) 7 Days Qty: 14 0RF fluoxetine 10 mg Capsule 10 mg PO DAILY Qty: 0 0RF Continued atorvastatin 20 mg tablet 20 mg PO DAILY trazodone 100 mg tablet 100 mg PO BEDTIME olanzapine 10 mg tablet,disintegrating 25 mg PO BEDTIME tiotropium bromide 2.5 mcg/actuation Mist 2 inh INHALATION DAILY metformin 750 mg tablet extended release 24 hr 750 mg PO DAILY Discontinued olanzapine 10 mg tablet,disintegrating 10 mg PO DAILY Discharge Orders: Discharge Order (Routine); Ordered 12/22/24 Ordered By: Flor Servin Diet: Regular diet Activity on Discharge: As tolerated Stand Alone Forms: Patient Portal Discharge page, Community Support Print Language: Telugu Care Plan Goals: Maintain mood and safe behaviors Take medications as prescribed Practice coping skills Continue with outpatient providers and reach out to them as needed Health Concerns: Mood stability and behaviors Plan of Treatment: Follow up with your PCP, psychiatric provider and other outpatient providers regarding above concerns Take medications as prescribed Assessment: Patient has insight and demonstrates good judgment in terms of wanting to pursue treatment. Patient has a safety plan that includes presenting to the closest ER or calling 911 if feeling unsafe. Discharge Date/Time: 12/22/24 09:56
[2024-12-22] MEDS: Nicotine 21 MG PATCH.TD24 TRANSDERMA (09:26)
[2024-12-22] MEDS: Nicotine Polacrilex Lozenge 4 MG LOZENGE BUCCAL (09:30)
== END 2024-12-22 09:56 | disposition home or self-care (01) | DRG 885 ==
PROVIDERS: Psychiatry & Neurology Psychiatry; Admitting Provider Registered Nurse; Responsible Provider Registered Nurse; Visit Provider Psychiatry & Neurology Psychiatry
DX: F33.9 Major depressive disorder, recurrent, unspecified (principal); R45.851 Suicidal ideations; E11.9 Type 2 diabetes mellitus without complications; F17.210 Nicotine dependence, cigarettes, uncomplicated; N52.9 Male erectile dysfunction, unspecified; E78.5 Hyperlipidemia, unspecified; Z71.6 Tobacco abuse counseling; Z79.899 Other long term (current) drug therapy
CPT/HCPCS: 36415; 82565

== ENCOUNTER → 2024-12-16 16:35 | Outpatient (BNV) | payer MEDICAID, SELFPAY | PROVIDERS: Admitting Provider Registered Nurse; Visit Provider Psychiatry & Neurology Psychiatry | DX: F33.9 Major depressive disorder, recurrent, unspecified (principal) | CPT/HCPCS: 90792 ==

== ENCOUNTER → 2024-12-16 16:35 | Outpatient (BNV) | payer MEDICAID, SELFPAY | PROVIDERS: Admitting Provider Registered Nurse; Visit Provider Nurse Practitioner Acute Care | DX: F33.9 Major depressive disorder, recurrent, unspecified (principal) | CPT/HCPCS: 99223 ==